=== PATIENT | female | born 1970 | race African-American/Black ===

== ENCOUNTER 2017-10-12 09:14 | Observation (INO) ==
[2017-10-12 11:00] LABS: Basophils % 0.1 % (0.0-0.8); Eosinophils # 0.1 10*3/uL (0.0-0.87); Eosinophils % 1.1 % (0.00-10.9); Hematocrit 31.4 VOL% (35.7-47.0); Hemoglobin 11.2 GM/DL (12.0-16.0); Immature Granulocytes % 0.5 %; Immature Granulocytes Absolute 0.04 #; Lymphocytes # 1.7 10*3/uL (1.4-4.0); Lymphocytes % 21.2 % (21.3-54.2); Mean Corpuscular HGB Conc 35.7 GM/DL (32-36); Mean Corpuscular Hemoglobin 31 PG (27-34); Mean Corpuscular Volume 86.7 FL (87-102); Mean Platelet Volume 9.8 FL (9.6-12.0); Monocytes # 0.6 10*3/uL (0.11-0.8); Monocytes % 7.6 % (1.7-12.7); Neutrophils # 5.7 10*3/uL (1.4-7.4); Neutrophils % 69.5 % (38.7-73.9); Platelet Count 263 T/CUMM (130-400); Red Blood Count 3.62 MC/CUMM (3.8-5.5); Red Cell Distribution Width 15.3 % (9.3-17.3); White Blood Count 8.2 T/CUMM (4-12)
[2017-10-12 11:31] LABS: Barbiturates Screen,Urine Negative (Negative); Benzodiazepines Screen,Urine Negative (Negative); Cannabinoid Screen,Urine Negative (Negative); Opiate Screen,Urine Negative (Negative)
[2017-10-12 11:34] LABS: Phencyclidine Screen,Urine Positive (Negative)
[2017-10-12 11:43] LABS: Alanine Aminotransferase 14 U/L (13-56); Albumin 3.5 G/DL (3.4-5.0); Alkaline Phosphatase 60 U/L (45-117); Aspartate Amino Transferase 6 U/L (0-37); Blood Urea Nitrogen 8 MG/DL (7-18); Calcium 8.2 MG/DL (8.5-10.1); Glucose 98 MG/DL (74-106); Potassium 3.2 MMOL/L (3.5-5.1); Sodium 143 MMOL/L (136-145); Total Protein 6.5 G/DL (6.4-8.3)
[2017-10-12] MEDS ORDERED: ZIPRASIDONE 20 MG/1 ML VIAL IM ONE ×2 (13:34→13:54)
[2017-10-12] MEDS ORDERED: LORazepam 2 MG/1 ML VIAL IV STA (13:46)
[2017-10-12] MEDS ORDERED: LORazepam 2 MG/1 ML VIAL ONE (13:47)
[2017-10-12] MEDS ORDERED: LORazepam 2 MG/1 ML VIAL IV PRN (14:35)
[2017-10-12] MEDS ORDERED: ACETAMINOPHEN 325 MG TABLET PO PRN (14:35)
[2017-10-12] MEDS ORDERED: ONDANSETRON 4 MG/2 ML VIAL IV PRN (14:35)
[2017-10-12] MEDS ORDERED: HALOPERIDOL 5 MG/ML AMP IV PRN (14:35)
[2017-10-12] MEDS ORDERED: NICOTINE 21 MG/24 HR PATCH TRANSDERM PRN (15:00)
[2017-10-12] MEDS ORDERED: POTASSIUM CHLORIDE 20 MEQ TABLET PO ONE (15:30)
[2017-10-12] MEDS: SIMVASTATIN 20 MG TABLET PO SCH (17:46)
[2017-10-12] MEDS: amLODIPine 10 MG TABLET PO SCH (17:46)
[2017-10-12] MEDS: busPIRone 15 MG TABLET PO SCH (20:37)
[2017-10-13 07:14] LABS: Calcium 8.1 MG/DL (8.5-10.1); Osmolality,Calculated 285.7 MOS/KG (273-304); Potassium 3.3 MMOL/L (3.5-5.1)
[2017-10-13] MEDS ORDERED: hydroCHLOROthiazide 25 MG TABLET PO SCH (09:00)
[2017-10-13] MEDS ORDERED: TELMISARTAN 40 MG TABLET PO SCH (09:00)
[2017-10-13] MEDS ORDERED: POTASSIUM CHLORIDE 20 MEQ TABLET PO ONE (09:12)
[2017-10-13] MEDS: amLODIPine 10 MG TABLET PO SCH (09:23)
[2017-10-13] MEDS: busPIRone 15 MG TABLET PO SCH (09:23)
[2017-10-13] MEDS: SIMVASTATIN 20 MG TABLET PO SCH (09:23)
[2017-10-13 11:48] VITALS: BP 136/75
== END 2017-10-13 13:15 | disposition home or self-care (01) ==
LOC: N.ED 09:14 → N.EDINP 09:14 → N.5E 14:19
PROVIDERS: ADMIT Internal Medicine; ATTEND Internal Medicine